=== PATIENT | female | born 1995 | race Caucasian/White ===

== ENCOUNTER 2017-01-09 13:05 | Emergency (ER) | payer MEDICAID ==
[2016-09-04 17:11] VITALS: BMI 31.9
[2017-01-10 10:11] LABS: URINE BILIRUBIN NEGATIVE (NEGATIVE); URINE COLOR STRAW (YELLOW); URINE GLUCOSE (UA) NEGATIVE (Normal)
[2017-01-10 10:12] LABS: URINE KETONE NEGATIVE (NEGATIVE); URINE PROTEIN 30 mg/dL (NEGATIVE)
[2017-01-10 10:13] LABS: URINE LEUKOCYTE ESTERASE Positive Leu/uL (Negative); URINE UROBILINOGEN 0.2-1.0 mg/dL (0.2-1.0)
[2017-01-10 10:14] LABS: URINE BACTERIA OCC (<OCC); WBC URINE 669 /hpf (0-5)
== END 2017-01-09 16:00 | disposition home or self-care (01) ==
LOC: H.ER 13:05 → H.EDERROR 13:05
DX: N39.0 Urinary tract infection, site not specified (principal); R04.0 Epistaxis

== ENCOUNTER 2017-01-10 12:27 | Emergency (ER) | payer MEDICAID ==
[2017-01-10 12:27] VITALS: BMI 31.9
[2017-01-10 13:21] VITALS: BP 130/80; PULSE 85; RESP 16; TEMP 98.6; O2SAT 98
[2017-01-10] MEDS ORDERED: Silver Nitrate Topical - Stick TOP ONE (13:33)
--- NOTE | 2017-01-10 13:48 | ED PDOC ---
HPI: Nose Bleed Time Seen by Provider: 01/10/17 13:23 Chief Complaint (Nursing): ENT Problem Chief Complaint (Provider): Nose Bleed/Nasal Congestion History Per: Patient History/Exam Limitations: no limitations Onset/Duration Of Symptoms: Days (x7) Current Symptoms Are (Timing): Still Present Location Of Bleeding: Left Nare Symptoms Have Been: Episodic Additional Complaint(s): Briana Wilcox is a 21 year old female that presents to the ED with a chief complaint of nasal congestion and intermittent left nostril bleeding that she has been experiencing for the past 7 days. Patient states that she was seen in the ED yesterday for the same problem and was subsequently discharged. She denies any head injury, weakness, history of anemia, or fever. Past Medical History Reviewed: Historical Data, Nursing Documentation, Vital Signs Vital Signs: Last Vital Signs Temp 98.6 F 01/10/17 13:19 Pulse 85 01/10/17 13:19 Resp 16 01/10/17 13:19 BP 130/80 01/10/17 13:19 Pulse Ox 98 01/10/17 13:19 - Medical History PMH: Denies: Anemia - Surgical History Surgical History: (x1) - Family History Family History: States: Unknown Family Hx - Home Medications Home Medications: Ambulatory Orders Medication Instructions Recorded Multivit/Folic Acid/I 1 tab PO DAILY 12/24/15 [ Plus] Fluticasone Propionate [Flonase] 2 spr NS DAILY PRN #1 bottle 01/10/17 - Allergies Allergies/Adverse Reactions: Allergies Allergy/AdvReac Type Severity Reaction Status Date / Time No Known Allergies Allergy Verified 12/24/15 13:32 Review of Systems Constitutional: Negative for: Fever, Weakness, Other (denies head injury) ENT: Positive for: Nose Congestion, Other (left nostril bleeding) Physical Exam - Reviewed Nursing Documentation Reviewed: Yes Vital Signs Reviewed: Yes - Physical Exam Appears: Positive for: Non-toxic, No Acute Distress Head Exam: Positive for: ATRAUMATIC, NORMOCEPHALIC Skin: Positive for: Normal Color, Warm Eye Exam: Positive for: Normal appearance ENT: Positive for: Pharynx Is (clear), Other (Dried blood noted in left nostril. Bleeding site identified in left anterior nasal septum.) Neurologic/Psych: Positive for: Alert, Oriented - ECG O2 Sat by Pulse Oximetry: 98 (RA) Pulse Ox Interpretation: Normal Medical Decision Making Medical Decision Makin:30 Impression: Nasal Congestion/Left Nostril Bleeding Plan: * Potassium/Silver Nitrate Stick * Reevaluation Scribe Attestation: Documented by Erica Linn, acting as a scribe for Mathieu Vivar PA-C. Provider Scribe Attestation: All medical record entries made by the Scribe were at my direction and personally dictated by me. I have reviewed the chart and agree that the record accurately reflects my personal performance of the history, physical exam, medical decision making, and the department course for this patient. I have also personally directed, reviewed, and agree with the discharge instructions and disposition. Disposition - Clinical Impression Clinical Impression: Epistaxis - Patient ED Disposition Is Patient to be Admitted: No - Disposition Referrals: Miki Moore MD [Staff Provider] - [facility] [Outside] Disposition: Routine/Home Disposition Time: 13:58 Condition: IMPROVED Additional Instructions: Follow up with ENT in 2 days for further evaluation. Prescriptions: Fluticasone Propionate [Flonase] 2 spr NS DAILY PRN #1 bottle PRN Reason: Allergy Symptoms Instructions: Nosebleed (ED) Print Language: LITHUANIAN Procedures - Time-Out Type of Procedure: Nasal cautery Site of Procedure: L nare Correct Patient (with visual ID + MR# on ID Band): Yes Correct Procedure: Yes Correct Site Marked: Yes PA/Tech: Cb - Additional Procedures Progress: Silver nitrate applied to L nare. No epistaxis in ED.
== END 2017-01-10 14:25 | disposition home or self-care (01) ==
LOC: H.ER 12:27
DX: R04.0 Epistaxis (principal)